=== PATIENT | female | born 1990 | race Caucasian/White ===

== ENCOUNTER 2019-01-03 12:34 | Outpatient (CLI) | payer BC ==
[~2019-01-03] VITALS: Ht 154.9 cm; Wt 75.8 kg
[~2019-01-03 12:34] MED LIST: DOCU100T PO; FER325 PO; IBUP-1542 PO; PREN1TAB12 PO
[2019-01-03 12:58] VITALS: BP 109/55; PULSE 67; RESP 19; Ht 154.9 cm; Wt 75.8 kg
== END 2019-01-03 14:50 | disposition home or self-care (01) ==
LOC: OBT 12:34 → L-D 12:34 → OBT 14:50
PROVIDERS: ATTEND Obstetrics & Gynecology
DX: O42.913 Preterm premature rupture of membranes, unspecified as to length of time between rupture and onset of labor, third trimester (principal); Z3A.29 29 weeks gestation of pregnancy
CPT/HCPCS: 76817; 76818; 81001; 84112; 87086; Z7500; G0463